=== PATIENT | female | born 1950 | race Caucasian/White ===

== ENCOUNTER → 2016-08-16 | Outpatient (CLI) | payer BC, MEDICARE ==
--- NOTE | 2016-08-16 15:13 | RAD ---
Indication chronic hip pain. An AP view of the pelvis was obtained as well as frog-leg views of both hips. There is probable bony demineralization. There are significant degenerative changes in the visualized lower lumbar spine. Mild degenerative change is seen involving both hips. Advanced degenerative changes are not apparent on plain films. No acute bony finding is seen. Postop changes are noted in the pelvis. IMPRESSION: Degenerative changes in the lower lumbar spine. Mild degenerative change involving both hips
== END | disposition home or self-care (01) ==
LOC: DXRADRC 14:52
PROVIDERS: ATTEND Nurse Practitioner Family
DX: M25.552 Pain in left hip (principal); M47.896 Other spondylosis, lumbar region; M25.551 Pain in right hip; G89.29 Other chronic pain
CPT/HCPCS: 73521

== ENCOUNTER → 2017-01-13 | Outpatient (CLI) | payer MEDICARE ==
--- NOTE | 2017-01-13 14:57 | RAD ---
Examination: 2 views of the lumbar spine History: History of lumbago, pain while bending over Comparison: None available Findings: The vertebral body heights are maintained. Minimal 2 mm retrolisthesis of L3 on L4. Moderate intervertebral disc height loss identified at L4-L5, L5-S1 vertebral levels. The facets appear to be well aligned. Moderate degenerative changes identified suggestive Small anterior osteophyte formation identified in the lumbar spine throughout. Impression: 1. Moderate degenerative changes lumbar spine. 2. Minimal 2 mm retrolisthesis of L3 on L4.
== END | disposition home or self-care (01) ==
LOC: DXRADRC 14:33
PROVIDERS: ATTEND Nurse Practitioner Family
DX: M47.896 Other spondylosis, lumbar region (principal); M25.78 Osteophyte, vertebrae
CPT/HCPCS: 72100